=== PATIENT | male | born 1975 | race American Indian/Alaskan Native ===

== ENCOUNTER 2018-01-24 23:09 | Emergency (ER) | payer SELFPAY ==
[2018-01-24 23:19] VITALS: BP 129/80
--- NOTE | 2018-01-25 03:12 | Emergency Department Report ---
ED ENT HPI - General Chief complaint: Earache Stated complaint: HEARING LOSS/RT EAR Time Seen by Provider: 01/25/18 03:08 Source: patient Mode of arrival: Ambulatory Limitations: No Limitations - History of Present Illness Initial comments: Patient presents for cerumen impaction right ear x 3 days ,there is no fever no chills no tinnitus, symptoms not relieved anything, exacerbated by prolong standing ., there has been no fall injury or trauma - Related Data Previous Rx's Medication Instructions Recorded Last Taken Type Ibuprofen 800 mg PO TID PRN #30 tablet 01/25/18 Unknown Rx Allergies Allergy/AdvReac Type Severity Reaction Status Date / Time No Known Allergies Allergy Unverified 01/25/18 00:19 ED Dental HPI - General Chief complaint: Earache Stated complaint: HEARING LOSS/RT EAR Time Seen by Provider: 01/25/18 03:08 Source: patient Mode of arrival: Ambulatory Limitations: No Limitations - History of Present Illness MD complaint: sore throat, ear pain -: minutes(s), hour(s), days(s) Time: 03:13 Severity: mild Quality: burning Consistency: constant Improves with: none Worsens with: chewing, hot/cold liquids Context- Dental: history of dental caries, poor dental care - Related Data Previous Rx's Medication Instructions Recorded Last Taken Type Ibuprofen 800 mg PO TID PRN #30 tablet 01/25/18 Unknown Rx Allergies Allergy/AdvReac Type Severity Reaction Status Date / Time No Known Allergies Allergy Unverified 01/25/18 00:19 ED Review of Systems ROS: Stated complaint: HEARING LOSS/RT EAR Other details as noted in HPI ED Past Medical Hx - Past Medical History Previous Medical History?: No - Surgical History Past Surgical History?: No - Social History Smoking Status: Current Every Day Smoker Substance Use Type: None - Medications Home Medications: Home Medications Medication Instructions Recorded Confirmed Last Taken Type Ibuprofen 800 mg PO TID PRN #30 tablet 01/25/18 Unknown Rx ED Physical Exam - General Limitations: No Limitations General appearance: alert, in no apparent distress - Head Head exam: Present: atraumatic, normocephalic - Eye Eye exam: Present: normal appearance - ENT ENT exam: Present: mucous membranes moist - Expanded ENT Exam Expanded TM/Canal exam: Erythema: Right TM, Left TM, Bulging: Right TM, Left TM, Effusion : Right TM, Left TM, Perforation: Right TM, Foreign Body: Right TM, Left TM, Cerumen Impaction: Right TM Mouth exam: Present: normal external inspection - Neck Neck exam: Present: normal inspection, tenderness, lymphadenopathy, thyromegaly. Absent: meningismus, full ROM - Respiratory Respiratory exam: Present: normal lung sounds bilaterally. Absent: respiratory distress, chest wall tenderness - Cardiovascular Cardiovascular Exam: Present: regular rate, normal rhythm, normal heart sounds. Absent: systolic murmur, diastolic murmur, rubs, gallop - GI/Abdominal GI/Abdominal exam: Present: soft, normal bowel sounds - Rectal Rectal exam: Present: deferred - Extremities Exam Extremities exam: Present: normal inspection, full ROM, tenderness. Absent: normal capillary refill, pedal edema, joint swelling - Back Exam Back exam: Present: normal inspection, full ROM, tenderness, CVA tenderness (R) , CVA tenderness (L), muscle spasm, paraspinal tenderness, vertebral tenderness - Neurological Exam Neurological exam: Present: alert, oriented X3 ED Course Vital Signs 01/24/18 23:11 Temperature 98.1 F Pulse Rate 78 Respiratory 16 Rate Blood Pressure 129/80 O2 Sat by Pulse 99 Oximetry ED Medical Decision Making - Medical Decision Making This a cerumen impaction we'll DC to home with [facility] and follow with ENT in 2- 3 days patient verbalized understanding saline was DC'd home stable condition at this time Critical care attestation.: If time is entered above; I have spent that time in minutes in the direct care of this critically ill patient, excluding procedure time. ED Disposition Clinical Impression: Cerumen impaction Qualifiers: Laterality: right Qualified Code(s): H61.21 - Impacted cerumen, right ear Disposition: DC-01 TO HOME OR SELFCARE Is pt being admited?: No Does the pt Need Aspirin: No Condition: Good Instructions: Cerumen Impaction (ED) Prescriptions: Ibuprofen 800 mg PO TID PRN #30 tablet PRN Reason: Pain , Severe (7-10) Referrals: PRIMARY CARE,MD [Primary Care Provider] - 3-5 Days Forms: Work/School Release Form(ED)
== END 2018-01-25 03:30 | disposition home or self-care (01) ==
LOC: ED 23:09
DX: H61.21 Impacted cerumen, right ear (principal); F17.200 Nicotine dependence, unspecified, uncomplicated
CPT/HCPCS: 99282